=== PATIENT | female | born 1960 | race Caucasian/White ===

== ENCOUNTER → 2018-08-28 | Outpatient (CLI) | payer OTHER ==
[~2018-08-28] MED LIST: ADVAIR 250-501 EACH IH; ANTIDEPRESSANT; BUSPAR30 MG PO; CALAN OR; CLONIDINE HCL0.2 M2 GT; EFFEXOR XR150 MG PO; IRON325 PO; LISINOPRIL10 MG PO; MIRAPEX0.5 MG PO; NORCO 5-325 TA1 EACH PO; PERCOCET 5-3251 EACH; PRAZOSIN 1 MG CA1 M1 PO; PROTONIX40 M2 PO; VENTOLIN HFA 1818 GM INH; XANAX XR1 MG PO; ZOCOR PO; ZOCOR40 MG PO; ZOLOFT100 MG PO
== END ==
LOC: RAD 11:29
DX: R05 Cough (principal)